=== PATIENT | female | born 1970 | race Caucasian/White ===

== ENCOUNTER 2020-05-17 15:05 | Emergency (ER) | payer OTHER ==
[~2020-05-17] VITALS: Ht 154.9 cm; Wt 68.0 kg
[~2020-05-17 15:05] MED LIST: CABERGOLINE0.5 MG PO; DIAZEPAM10 MG PO; EFFEXOR XR37.5 MG PO
[2020-05-17] MEDS ORDERED: RAYOS2 MG (15:21)
[2020-05-17] MEDS ORDERED: DILTIAZEM HCL120 MG (15:21)
[2020-05-17] MEDS ORDERED: PLAQUENIL 200 MG (15:22)
== END 2020-05-17 18:13 | disposition home or self-care (01) ==
LOC: ER 15:05
DX: S80.212A Abrasion, left knee, initial encounter (principal); W18.09XA Striking against other object with subsequent fall, initial encounter; Y93.89 Activity, other specified; Y92.89 Other specified places as the place of occurrence of the external cause; Y99.8 Other external cause status

== ENCOUNTER 2021-09-18 09:31 | Emergency (ER) | payer OTHER ==
[~2021-09-18] VITALS: Ht 154.9 cm; Wt 72.6 kg
[~2021-09-18 09:31] MED LIST changes: +DILTIAZEM HCL120 MG; +PLAQUENIL 200 MG; +RAYOS2 MG
[2021-09-18] MEDS ORDERED: DICLOFENAC POTA50 MG PO (14:39)
== END 2021-09-18 15:08 | disposition home or self-care (01) ==
LOC: ER 09:31
DX: I87.2 Venous insufficiency (chronic) (peripheral) (principal); M79.604 Pain in right leg; M25.561 Pain in right knee